=== PATIENT | male | born 1955 | race Caucasian/White ===

== ENCOUNTER 2018-11-21 06:23 | Emergency (ER) | payer BC ==
[~2018-11-21] VITALS: Ht 182.9 cm; Wt 80.9 kg
[2018-11-21] MEDS ORDERED: RYTA1CAP PO ×2 (06:37)
[2018-11-21] MEDS ORDERED: GABA-843 PO (06:37)
[2018-11-21 06:40] VITALS: BP 137/78
[2018-11-21] MEDS ORDERED: MORPHINE 10 MG/ML 1ML VIAL (J2270) IM ONE (07:00)
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
[2018-11-21] MEDS ORDERED: diazePAM 2 MG TAB PO ONE (08:30)
[2018-11-21] MEDS ORDERED: KETOROLAC 30 MG/ML VIAL (J1885) IV ONE (08:30)
[2018-11-21 08:44] LABS: BLOOD UREA NITROGEN 15 MG/DL (7-18); CALCIUM LEVEL 8.7 MG/DL (8.8-10.2); CARBON DIOXIDE LEVEL 27 MEQ/L (21-32); CHLORIDE LEVEL 104 MEQ/L (98-107); CREATININE FOR GFR 1.04 MG/DL (0.70-1.30); GLOMERULAR FILTRATION RATE > 60.0 (>49); GLUCOSE, FASTING 98 MG/DL (70-100); SODIUM LEVEL 138 MEQ/L (136-145)
[2018-11-21] MEDS ORDERED: ISOVUE-370 76% 100ML VIAL (Q9967) As Ordered ONE (08:50)
[2018-11-21] MEDS ORDERED: LORazepam 2 MG/ML VIAL (J2060) IV ONE (09:00)
[2018-11-21] MEDS ORDERED: PERC5TAB12 PO (09:52)
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
== END 2018-11-21 10:18 | disposition home or self-care (01) ==
LOC: M ED 06:23
DX: S22.41XA Multiple fractures of ribs, right side, initial encounter for closed fracture (principal); V86.92XA Unspecified occupant of snowmobile injured in nontraffic accident, initial encounter; Y92.89 Other specified places as the place of occurrence of the external cause; J94.2 Hemothorax; G20 Parkinson's disease; Z95.0 Presence of cardiac pacemaker; Z79.899 Other long term (current) drug therapy
CPT/HCPCS: 71250; 74177; 80048; 96372; 96374; 96375; 99284; J1885; J2060; J2270; Q9967